=== PATIENT | female | born 1945 | race Caucasian/White ===

== ENCOUNTER → 2023-02-07 10:53 | Outpatient (CLI) | payer MEDICARE, OTHER, SELFPAY | PROVIDERS: Visit Provider Nurse Practitioner Family | DX: R30.0 Dysuria (principal) | CPT/HCPCS: 87077; 87086; 87186 ==

== ENCOUNTER 2023-08-01 09:15 | Emergency (ER) | payer MEDICARE, OTHER, SELFPAY ==
--- NOTE | 2023-08-01 09:19 | ED.FEMALEGU ---
HPI - Female Genitourinary General Chief complaint: Urogenital-Female Stated complaint: UTI PER PT Time Seen by Provider: 08/01/23 09:18 Source: patient, RN notes reviewed and old records reviewed Mode of arrival: Ambulatory Limitations: no limitations History of Present Illness HPI Narrative: 77-year-old female with dyslipidemia, prior hysterectomy who presents with complaint of dysuria, suprapubic pressure, frequency and sense of incomplete emptying that started mildly yesterday but became much more intense today. Patient states no fevers or chills, no back or flank pain, no nausea no vomiting. No other diarrhea or constipation, no vaginal bleeding or discharge. Patient states she has had UTIs in the past 1 point she would them so frequently she went to see Urogynecology. Patient states she is had a hysterectomy and had her ovaries removed at a later date. Denies any other medical issues she states she just was recently started on a statin. She does have allergies to cephalexin, indomethacin, penicillin and sulfa. She states she has had Macrobid with good effect in the past. No tobacco, occasional alcohol, no recreational drugs. Patient follows with Dr. Muñoz for her primary care. Related Data Previous Rx's Medication Instructions Recorded rosuvastatin 10 mg tablet 10 mg PO DAILY #90 tabs 07/30/23 nitrofurantoin 100 mg PO Q12H 5 days #10 caps 08/01/23 monohydrate/macrocrystals 100 mg capsule (Macrobid) Allergies Allergy/AdvReac Type Severity Reaction Status Date / Time cephalexin Allergy rash Verified 08/01/23 09:26 indomethacin [From Indocin] Allergy rash Verified 08/01/23 09:26 Penicillins Allergy rash Verified 08/01/23 09:26 Sulfa (Sulfonamide Allergy rash Verified 08/01/23 09:26 Antibiotics) Review of Systems Review of Systems ROS Unobtainable: All systems reviewed & are unremarkable except as noted in HPI and below Patient History Medical History Allergic rhinitis GERD without esophagitis History of colonic polyps Osteopenia Mixed hyperlipidemia Exam Narrative Exam Narrative: GENERAL: Alert and oriented x three, well-nourished, well-appearing female in mild distress. HEENT: Head normocephalic, atraumatic, EOMI, pupils reactive, face symmetric, moist mucous membranes NECK: Supple, full range of motion CARDIOVASCULAR: Regular rate and rhythm without murmurs, rubs or gallops. RESPIRATORY: Breath sounds equal bilaterally, no wheezes rales or rhonchi. ABDOMEN: Soft, nontender. Normoactive bowel sounds all 4 quadrants. No guarding or rebound, rigidity, no mass : No CVA tenderness EXTREMITIES: Normal range of motion, no clubbing or edema. Neurovascularly intact. Normal gait. NEUROLOGICAL: Cranial nerves II through XII grossly intact. Moving all extremities SKIN: Warm, dry, no petechiae, no rashes or lesions. Initial Vital Signs Initial Vital Signs: Vital Signs Temperature 97.8 F 08/01/23 09:22 Pulse Rate 84 08/01/23 09:22 Respiratory Rate 17 08/01/23 09:22 Blood Pressure 150/74 H 08/01/23 09:22 Pulse Oximetry 98 08/01/23 09:22 Oxygen Delivery Method Room Air 08/01/23 09:22 Course Orders Ordered: ED Orders 08/01/23 09:31 Urine Culture Stat Urine Microscopic Stat Nitrofurantoin Macrocrystals (Nitrofurantoin Er 100 Mg Capsule) 100 mg PO NOW Stop: 08/01/23 23:59 Discontinued Medications Nitrofurantoin Macrocrystals (Nitrofurantoin Er 100 Mg Capsule) 100 mg PO NOW ONE Stop: 08/01/23 09:28 Last Admin: 08/01/23 09:46 Dose: 100 mg Ondansetron HCl (Ondansetron 4 Mg Odt) 4 mg SL NOW PRN PRN Reason: Nausea And Vomiting Ondansetron HCl (Ondansetron 4 Mg/2 Ml Inj) 4 mg IV NOW PRN PRN Reason: Nausea And Vomiting Phenazopyridine HCl (Phenazopyridine 100 Mg Tablet) 200 mg PO NOW ONE Stop: 08/01/23 09:28 Last Admin: 08/01/23 09:46 Dose: 200 mg Vital Signs Vital signs: Vital Signs - 8 hr 08/01/23 09:22 08/01/23 09:53 Temperature 97.8 F Pulse Rate 84 91 H Respiratory Rate 17 12 Blood Pressure 150/74 H 168/90 H Pulse Oximetry 98 97 Oxygen Delivery Method Room Air Room Air MDM - Female Genitourinary Lab Data Labs: Lab Results 08/01/23 Range/Units 09:31 Urine RBC 1-5/hpf (0-5/HPF) Urine WBC 10-30/hpf H (0-5/HPF) Ur Squamous Epith Cells None seen (0-5/HPF) Urine Bacteria Occasional (0-1) (None) Ur Culture Indicated? Specimen cultured Urine Dip Bedside Urine Glucose Negative Bedside Urine Bilirubin - Negative Bedside Urine Ketone - Negative Urine Specific [place] 1.030 Bedside Urine Occult Blood +++ Bedside Urine pH 5.5 Bedside Urine Protein +/- 15 Bedside Urine Urobilinogen - Negative Bedside Urine Nitrite - Negative Bedside Urine Leukocytes ++ 125 Esterase MDM Narrative Medical decision making narrative: 77-year-old female with symptoms consistent with UTI, patient has leukocyte, blood in her urine, micro shows 1-5 RBCs tendon 30 WBCs no squamous, 1 bacteria sent for culture. Patient is well-appearing, vitals not reflect any signs of sepsis she does not have any other systemic symptoms. Has clinical symptoms consistent with UTI. We will give initial dose of Macrobid here, all the pharmacies are closed secondary to the holiday so was given 1 additional dose for this evening and prescription sent to the pharmacy to picker and packer tomorrow. Patient also states she has had Azo Pyridium which has been helpful in the past. Discharge Plan Departure Patient Disposition: Home Clinical Impression: Urinary tract infection Activity Restrictions/Additional Instructions: Follow up if your symptoms are not improving over the next several days. Take 1 tablet Macrobid every 12 hours. A dose was dispensed to take this evening. grocery supervisor your prescription tomorrow at [facility] in [place] and take until completed. You can take Azo over the counter for bladder spasm symptoms. Please return for fevers, rapidly worsening symptoms no abdominal back or flank pain, nausea or vomiting, or other new or concerning changes. Prescriptions: New nitrofurantoin monohyd/m-cryst [Macrobid] 100 mg capsule 100 mg PO Q12H 5 Days Qty: 10 0RF Rx Instructions: must administer with a meal/food No Action rosuvastatin 10 mg tablet 10 mg PO DAILY Qty: 90 3RF Referrals: Sandoval Muñoz MD [Primary Care Provider] - Stand Alone Forms: Patient Portal/API
[2023-08-01 09:22] VITALS: BP 150/74; PULSE 84; RESP 17; TEMP 36.6; O2SAT 98
[2023-08-01] MEDS: NITROFURANTOIN ER 100 MG CAPSULE PO (09:46)
[2023-08-01] MEDS: PHENAZOPYRIDINE 100 MG TABLET 200 MG PO (09:46)
[2023-08-01 09:53] VITALS: BP 168/90; PULSE 91; RESP 12; O2SAT 97
--- NOTE | 2023-08-01 09:53 | PC.NURSE ---
pharmacy brought over the macrobid for patient to take at home. gave it to patient
[2023-08-01 09:56] LABS: Bacteria Urine Occasional (0-1); Culture Indicated Urine Specimen Cultured; RBC Urine 1-5/HPF (0-5/HPF); Squamous Epithelial Cell Urine None Seen (0-5/HPF); WBC Urine 10-30/HPF (0-5/HPF)
== END 2023-08-01 09:57 | disposition home or self-care (01) ==
PROVIDERS: Emergency Provider Emergency Medicine; PCP Internal Medicine
DX: N39.0 Urinary tract infection, site not specified (principal)
CPT/HCPCS: 81003; 81015; 87077; 87086; 87186; 99283

== ENCOUNTER → 2023-08-19 06:47 | Outpatient (CLI) | payer MEDICARE, OTHER, SELFPAY ==
[2023-08-19 08:24] LABS: Hematocrit 38.4 % (36-46); Hemoglobin 13.2 g/dL (12.0-16.0); Mean Corpuscular HGB Conc 34.3 % (30-36); Mean Corpuscular Hemoglobin 28.5 PG (26-34); Platelet Count 316 X10^3/uL (150-400); Red Blood Cell Count 4.62 X10^6/uL (4.0-5.2); Red Cell Distribution Width 13.9 % (11.6-14.8); White Blood Cell Count 4.6 X10^3/uL (4.5-11.0)
[2023-08-19 09:00] LABS: Alanine Aminotransferase 17 IU/L (<35); Albumin 4.2 g/dL (3.5-5.0); Albumin Globulin Ratio 1.4 (1.0-2.8); Alkaline Phosphatase 51 U/L (38-126); Aspartate Aminotransferase 25 IU/L (14-36); Bilirubin Total 0.8 mg/dL (0.2-1.3); Blood Urea Nitrogen 16 mg/dL (7-17); Calcium 9.9 mg/dL (8.4-10.2); Carbon Dioxide 29 mmol/L (22-32); Chloride 103 mmol/L (98-107); Cholesterol 134 mg/dL (140-199); Estimated Glomerular Filt Rate > 60 mL/min (>60); Glucose 98 mg/dL (80-110); HDL Cholesterol 69 mg/dL (40-60); HEMOLYSIS < 15 (0-50); LDL Cholesterol Calculated 48 mg/dL (<100); Potassium 4.4 mmol/L (3.4-5.1); Sodium 138 mmol/L (137-145); Total Protein 7.2 g/dL (6.3-8.2); Triglycerides 85 mg/dL (35-150)
[2023-08-19 09:25] LABS: TSH w/ Reflex to FT4 1.08 uIU/mL (0.47-4.68)
== END ==
PROVIDERS: PCP Internal Medicine; Referring Provider Internal Medicine; Visit Provider Internal Medicine
DX: E78.2 Mixed hyperlipidemia (principal); M85.80 Other specified disorders of bone density and structure, unspecified site; Z86.010 Personal history of colon polyps
CPT/HCPCS: 36415; 80053; 80061; 84443; 85027

== ENCOUNTER 2023-08-29 09:08 | Day surgery (SDC) | payer MEDICARE, OTHER, SELFPAY ==
--- NOTE | 2023-08-29 | PATH_ITS ---
[facility] Accession Number: [id number] No. of containers..03 Tissue . 01 Material submitted: . PART A: duodenum - DUODENUM BIOPSY PART B: gastrointestinal site - ANTRUM BIOPSY PART C: esophagus, E-G Junction - GE JUNCTION BIOPSY . 01 Diagnosis: A. Duodenum, Biopsy: Duodenal mucosa with no diagnostic abnormality. Negative for active inflammation, features of sprue, dysplasia, or malignancy. . B. Stomach, Antrum, Biopsy: Antral mucosa with reactive gastropathy and mild chronic gastritis. Negative for Helicobacter by immunohistochemistry. Negative for intestinal metaplasia. Negative for dysplasia and malignancy. . C. Gastroesophageal Junction, Biopsy: Ulcerated squamocolumnar junctional mucosa with specialized intestinal metaplasia, consistent with Young's esophagus. Negative for dysplasia and malignancy. [facility] 09/06/2023 1442 Local . 01 Electronically signed: . Gisselle Joe MD, Pathologist NPI- [id number] . 01 Gross description: . Part A: DUODENUM BIOPSY: Received in formalin is multiple fragment(s) of pederson, soft tissue measuring 0.8 x 0.4 x 0.1 cm in aggregate submitted entirely in 1 cassette(s) Part B: ANTRUM BIOPSY: Received in formalin is multiple fragment(s) of pederson, soft tissue measuring 0.7 x 0.4 x 0.1 cm in aggregate submitted entirely in 1 cassette(s) Part C: GE JUNCTION BIOPSY: Received in formalin is multiple fragment(s) of pederson, soft tissue measuring 0.8 x 0.4 x 0.1 cm in aggregate submitted entirely in 1 cassette(s) /AA 08/30/2023 2228 Local . 01 Microscopic: . B. An immunohistochemical stain was performed to evaluate for Helicobacter organisms and is negative. The control stain showed appropriate reactivity. . * This test was developed and its performance characteristics determined by [employer]. It has not been cleared or approved by the U.S. Food and Drug Administration. The FDA has determined that such clearance or approval is not necessary. This test is used for clinical purposes. It should not be regarded as investigational or for research. . 01 Pathologist provided ICD-10: K22.70 . 01 CPT . 947629, 143612, 457894, I75589 Specimen Comment: A courtesy copy of this report has been sent to [phone] Performed at: 01 [facility] [address] [place] [address], [place], [place] [id number] MD Danny Reynolds MD Phone: [phone]
[2023-08-29 09:27] VITALS: BMI 22.6
[2023-08-29 09:45] VITALS: BP 148/88; PULSE 93; RESP 18; TEMP 36.9; O2SAT 98
[2023-08-29] MEDS: LACTATED RINGERS 1,000 ML 42 ML IV (09:51)
--- NOTE | 2023-08-29 10:03 | PM.PREOP ---
Pre-operative Note COVID-19 COVID-19 status: Not tested Interval Note History & Physical reviewed/Exam performed by Physician: Yes Changes to H&P: No ASA Class (for procedural sedation): II
[2023-08-29 11:05] VITALS: BP 115/65; PULSE 59; RESP 21; TEMP 36.4; O2SAT 97
--- NOTE | 2023-08-29 11:06 | PM.OP.EC ---
Operative Date/Time/Diagnoses Date of procedure: 08/29/23 Time of procedure: 11:06 Pre-op diagnosis: Dysphagia and history of polyps Post-op diagnosis: same Procedure & Clinicians Study performed: EGD and colonoscopy Same procedure as scheduled: Yes Surgeon: Giancarlo Don Procedure Notes Procedure in detail: Surgeon: Giancarlo Don MD Anesthesia: Sixto Rosa CRNA Procedure in detail: A timeout was performed. A bite blocked was placed and monitors were attached to the patient. The patient was positioned in the left lateral decubitus position. Sedation was administered. Once the patient was sedated the endoscope was inserted through the bite block and passed through the esophagus and stomach and into the duodenum. There was some iaco-[id number] duodenitis and random biopsies were taken from the first and second portions of the duodenum. We then withdrew the scope into the stomach. There was some mild antritis and a very small antral ulcer. Random biopsies were taken from the antrum. The rest of the stomach was normal. The endoscope was retroflexed and a small hiatal hernia was seen. The endoscope was straightned and withdrawn into the esophagus. There was some mild distal esophagitis and random biopsies were taken from the GE junction. EGD findings: Mild duodenitis, antritis, a small antral ulcer, a small hiatal hernia and mild distal esophagitis Next we repositioned the patient for a colonoscopy. A digital rectal exam was performed and was normal. The colonoscope was inserted and advanced to the cecum. The appendiceal orifice was identified and photographed. The scope was slowly withdrawn over greater than 6 minutes. Mild sigmoid diverticulosis was noted. The scope was retroflexed in the rectum and no other abnormalities were seen. Colonoscopy findings: Mild diverticulosis Total procedural EBL: 5 mL Scope withdrawal time: 6 minutes Sedation minutes: 26 minutes Post-procedure Disposition: PACU
[2023-08-29 11:10] VITALS: BP 112/65; PULSE 57; RESP 16; O2SAT 98
[2023-08-29 11:15] VITALS: BP 111/63; PULSE 58; RESP 18; O2SAT 98
== END 2023-08-29 12:00 | disposition home or self-care (01) ==
PROVIDERS: PCP Internal Medicine; Referring Provider Surgery; Visit Provider Surgery
PROC: 0DJ08ZZ Inspection of Upper Intestinal Tract, Via Natural or Artificial Opening Endoscopic (ICD-10-PCS; CPT 43235; principal; 2023-08-29 10:15)
PROC: 0DJD8ZZ Inspection of Lower Intestinal Tract, Via Natural or Artificial Opening Endoscopic (ICD-10-PCS; CPT 45378; 2023-08-29 10:15)
DX: Z12.11 Encounter for screening for malignant neoplasm of colon (principal); Z86.010 Personal history of colon polyps; R13.10 Dysphagia, unspecified; K57.30 Diverticulosis of large intestine without perforation or abscess without bleeding; K29.80 Duodenitis without bleeding; K44.9 Diaphragmatic hernia without obstruction or gangrene; K29.50 Unspecified chronic gastritis without bleeding; K25.9 Gastric ulcer, unspecified as acute or chronic, without hemorrhage or perforation; K20.90 Esophagitis, unspecified without bleeding; K31.9 Disease of stomach and duodenum, unspecified; K22.70 Barrett's esophagus without dysplasia
CPT/HCPCS: 43239; G0105

== ENCOUNTER → 2023-09-04 | Outpatient (CLI) | payer MEDICARE, OTHER, SELFPAY ==
--- NOTE | 2023-09-04 | DI.MG.S_ITS ---
BILATERAL DIGITAL SCREENING MAMMOGRAM 3D/2D WITH CAD WITH AUGMENTATION: 09/04/2023 CLINICAL: Routine screening. Comparison is made to exams dated: 05/28/2018 mammogram, 06/24/2020 mammogram, and 06/30/2015 mammogram - [facility]. There are scattered areas of fibroglandular density in both breasts (category b / 25%-50% glandular tissue). Current study was also evaluated with a Computer Aided Detection (CAD) system. Bilateral subglandular silicone implants are new and intact. No significant masses, calcifications, or other findings are seen in either breast. IMPRESSION: BENIGN There is no mammographic evidence of malignancy. A 1 year screening mammogram is recommended. Based on the Tyrer Cuzick model (a risk assessment model) the patient's lifetime risk is 2.6% and her 10 year risk is 0.0%. According to the ACR, ACS, and NCCN guidelines, an annual breast MRI exam along with mammogram is recommended if the patient's lifetime risk is 20% or greater. This exam was interpreted at Station ID: [id number]. NOTE: For mammograms, a report in lay terms will be sent to the patient. Approximately 15% of breast malignancies will not be visualized mammographically. In the management of a palpable breast mass, a negative mammogram must not discourage biopsy of a clinically suspicious lesion. Electronically Signed By: Kai helm/olaf:09/04/2023 16:14:20 letter sent: Normal Exam ACR BI-RADS Category 2: Benign Finding(s) 3342F
--- NOTE | 2023-09-04 14:03 | DI.RAD.S_ITS ---
PROCEDURE: XR DEXA AXIAL SKELETON INDICATIONS: postmenopausal osteopenia COMPARISON: None. FINDINGS: This blank DEXA report has been sent in error by the PACS system. The correct and complete report will be forthcoming in 1-2 days. Thank you for your patience and understanding. Dictated by: Reg Carnes M.D. on 09/04/2023 at 15:25 Approved by: Reg Carnes M.D. on 09/04/2023 at 15:25
--- NOTE | 2023-09-04 14:34 | DI.DEXA.S_ITS ---
Bone Density Report Name: VERITO ROBB Age: 77 Sex: Female Ethnicity: White Date of : 1945 Indication: postmenopausal; screening for osteoporosis; history of glucocorticoids; Referring Provider: ESTEPHANIA LAST Study: Bone densitometry was performed. Exam Date: September 04, 2023 Accession number: [id number] Bone Density: Region BMD T-score Z-score Classification AP Spine(L1, L2, L4) 0.806 -2.1 0.4 Osteopenia Femoral Neck (Left) 0.588 -2.4 -0.2 Osteopenia Total Hip (Left) 0.730 -1.7 0.2 Osteopenia Femoral Neck (Right) 0.637 -1.9 0.3 Osteopenia Total Hip (Right) 0.774 -1.4 0.5 Osteopenia Total Hip Mean 0.752 -1.6 0.4 Osteopenia World Health Organization criteria for BMD impression classify patients as: Normal (T-score at or above -1.0), Osteopenia (T-score between -1.0 and -2.5), or Osteoporosis (T-score at or below -2.5). 10-year Fracture Risk(1): Major Osteoporotic Fracture 22% Hip Fracture 7.8% Reported Risk Factors: [place] (), Neck BMD=0.588, BMI=22.7, glucocorticoids (1) FRAX(R) Version 3.08. Fracture probability calculated for an untreated patient. Fracture probability may be lower if the patient has received treatment. Impression: The patient has low bone mass, based on the Left Femoral Neck T-score. The patient has an estimated ten-year risk of hip fracture of 7.8% and an estimated ten-year risk of major fracture of 22%, based on the WHO FRAX algorithm. The patient has risk factors, including: history of glucocorticoid therapy. Discussion: BONE DENSITY IS LOW AT ONE OR MORE SKELETAL SITES. THE PATIENT'S BMD AND CLINICAL RISK FACTORS CONTRIBUTE TO THIS PATIENT'S HIGH RISK OF FRACTURE. This patient's lowest T-score is low at one or more skeletal sites. It meets the World Health Organization's (WHO) criteria for ?low bone mass? (T-score between -1.0 and -2.5). The patient's 10-year risk of hip fracture and 10 year risk of a major osteoporotic fracture as calculated by FRAX exceeds the threshold where pharmacological therapy is recommended by the National Osteoporosis Foundation (NOF). However, all treatment decisions require clinical judgment and consideration of individual patient factors, including patient preferences, comorbidities, previous drug use, risk factors not captured in the FRAX model (e.g., frailty, falls, vitamin D deficiency, increased bone turnover, interval significant decline in bone density) and possible under or overestimation of fracture risk by FRAX. The patient should follow a healthful lifestyle (good nutrition with adequate calcium and vitamin D, and appropriate weight-bearing exercise). Follow-Up: Consider a repeat BMD and Vertebral Fracture Assessment (VFA) exam in 2 years or sooner if medically necessary, to reassess this patient's status. Reported by: [facility] GENOVEVA LOPEZ M.D. on 09/04/2023 2:46:00 PM.
== END ==
LOC: RAD 14:01
PROVIDERS: PCP Internal Medicine; Referring Provider Internal Medicine; Visit Provider Internal Medicine
DX: M85.89 Other specified disorders of bone density and structure, multiple sites (principal); Z12.31 Encounter for screening mammogram for malignant neoplasm of breast
CPT/HCPCS: 77063; 77067; 77080

== ENCOUNTER → 2024-07-15 16:09 | Outpatient (CLI) | payer MEDICARE, OTHER, SELFPAY | PROVIDERS: PCP Internal Medicine; Visit Provider Student in an Organized Health Care Education/Training Program | DX: R30.0 Dysuria (principal); N30.01 Acute cystitis with hematuria | CPT/HCPCS: 87077; 87086; 87186 ==